=== PATIENT | female | born 1985 | race Caucasian/White ===

== ENCOUNTER 2022-08-20 08:34 | Day surgery (SDC) ==
[2022-08-15 19:24] LABS: Basophils # (Auto) 0.07 K/mcL (0.00-0.30); Basophils % (Auto) 0.6 % (0.0-2.0); Eosinophils % (Auto) 0.8 % (0.0-7.0); Hematocrit 41.9 % (34.1-44.9); Hemoglobin 13.2 g/dL (11.2-15.7); Lymphocytes # (Auto) 3.14 K/mcL (1.50-4.80); Lymphocytes % (Auto) 26.3 % (15.5-49.0); Mean Cell Volume 87.8 fL (80.0-100.0); Mean Corpuscular HGB Conc 31.5 g/dL (31.0-36.0); Mean Platelet Volume 10.3 fL (8.8-12.5); Monocytes # (Auto) 0.63 K/mcL (0.10-0.90); Monocytes % (Auto) 5.3 % (1.0-12.0); Neutrophils % (Auto) 66.5 % (38.0-78.0); Platelet Count 455 K/mcL (140-440); RBC 4.77 M/mcL (3.59-5.38)
[2022-08-15 19:35] LABS: Estimated Average Glucose(eAG) 143 mg/dL; Hemoglobin A1C 6.6 % Hgb (4.0-6.0)
[2022-08-15 20:46] LABS: ALT/SGPT 30 U/L (<40); AST/SGOT 23 U/L (<32); Albumin 4.3 gm/dL (3.2-5.2); Albumin/Globulin Ratio 1.7 (1.0-2.3); Alkaline Phosphatase 91 U/L (39-117); Bilirubin,Total 0.2 mg/dL (0.1-1.0); Blood Urea Nitrogen 9 mg/dL (6-20); Calcium 9.5 mg/dL (8.6-10.4); Carbon Dioxide 23 mmol/L (22-30); Chloride 97 mmol/L (96-108); Globulin 2.6 gm/dL (2.2-3.7); Glomerular Filtration Rate 71; Glucose 79 mg/dL (70-105)
[~2022-08-20 08:34] MED LIST: ceFAZolin 2 GM in DEXTROSE 5% IN WATER 50 ML IV SCH
[2022-08-20] MEDS ORDERED: PROPOFOL 200 MG/20 ML VIAL IV ONE (12:02)
[2022-08-20] MEDS ORDERED: GLYCOPYRROLATE 0.2 MG/ML VIAL IV ONE (12:02)
[2022-08-20] MEDS ORDERED: KETOROLAC 30 MG/ML VIAL ONE (12:02)
[2022-08-20] MEDS ORDERED: DEXAMETHASONE 10 MG/ML VIAL ONE (12:02)
[2022-08-20] MEDS ORDERED: fentaNYL 250 MCG/5 ML VIAL IV ONE (12:02)
[2022-08-20] MEDS ORDERED: MAGNESIUM SULFATE 2 GM/50 ML BAG IV ONE (12:02)
[2022-08-20] MEDS ORDERED: LIDOCAINE HCL/PF 100 MG/5 ML SYRINGE IV ONE (12:02)
[2022-08-20] MEDS ORDERED: KETAMINE 50 MG/ML Syringe (ANEST) IV ONE (12:02)
[2022-08-20] MEDS ORDERED: MIDAZOLAM 2 MG/2 ML VIAL ONE (12:02)
[2022-08-20] MEDS ORDERED: ONDANSETRON 4 MG/2 ML VIAL ONE (12:02)
[2022-08-20] MEDS ORDERED: PROMETHAZINE 25 MG/ML VIAL IV PRN ×2 (13:07→15:32)
[2022-08-20] MEDS ORDERED: ACETAMINOPHEN 1,000 MG/100 ML BAG IV ONE (13:07)
[2022-08-20] MEDS ORDERED: MEPERIDINE 25 MG/ML VIAL IV PRN ×2 (13:07→15:32)
[2022-08-20] MEDS ORDERED: diphenhydrAMINE 50 MG/ML VIAL IV PRN ×2 (13:07→15:32)
[2022-08-20] MEDS ORDERED: NALOXONE HCL 0.4 MG/ML VIAL IV PRN ×2 (13:07→15:32)
[2022-08-20] MEDS ORDERED: IPRATROPIUM/ALBUTEROL 3 ML AMPUL.NEB NEB PRN ×2 (13:07→15:32)
[2022-08-20] MEDS ORDERED: LACTATED RINGERS 250 ML IV PRN ×2 (13:07→15:32)
[2022-08-20] MEDS ORDERED: ONDANSETRON 4 MG/2 ML VIAL IV PRN ×2 (13:07→15:32)
[2022-08-20] MEDS ORDERED: METHOCARBAMOL 1,000 MG/10 ML VIAL IV PRN (13:07)
[2022-08-20] MEDS ORDERED: HYDROmorphone 0.5 MG/0.5 ML SYRINGE IV PRN (13:07)
[2022-08-20] MEDS ORDERED: fentaNYL 100 MCG/2 ML VIAL IV PRN (13:07)
[2022-08-20] MEDS ORDERED: LACTATED RINGERS 1,000 ML IV SCH ×2 (13:15→15:45)
[2022-08-20] MEDS ORDERED: BUPIVACAINE 0.25% 50 ML VIAL IJ ONE (13:25)
--- NOTE | 2022-08-20 15:49 | Brief Operative Note ---
Brief Operative Note Date of procedure: 08/20/22 Pre-op diagnosis: capsulitis and instability of right ankle Post-op diagnosis: same Procedure: right ankle: arthroscopy, ATFL repair and Internal brace Grafts/Implants: Yes (Arthrex internal brace ATFL with fibertacks x2 and boneanchors x2) Anesthesia: GETA Findings: firm bone with elimination of anterior drawer: significant anterior ankle capsulitis synovitis -no signs of osteochondral lesion visualized. ankle cartilage wnl in appearance Complications: none Surgeon: Christiano Ulloa Estimated blood loss (cc): 25 Tourniquet Time (Minutes): 120 Specimens Removed/Pathology: none sent Condition: stable Disposition: PACU
--- NOTE | 2022-08-20 15:51 | Discharge Plan ---
Discharge Plan Patient/Caregiver Discharge Instructions Activity: non-weight bearing Diet: Regular Diet Instructions: Ankle Arthroscopy (DC), General Anesthesia (DC) Prescriptions: New hydrocodone-acetaminophen 5-325 mg tablet 1 - 2 tab PO Q4H PRN (Reason: pain) Qty: 40 0RF cephalexin 500 mg tablet 1,000 mg PO Q12H Qty: 28 0RF Continued lamotrigine 200 MG tablet 200 mg PO DAILY escitalopram oxalate 20 MG tablet 20 mg PO QAM risperidone 1 mg Tablet 2 mg PO HS metformin 500 mg Tablet 1,000 mg PO BID glipizide 10 mg Tablet 10 mg PO QDAY Levemir U-100 Insulin 100 unit/mL Solution 100 unit SUBCUT HS tramadol 100 mg Tablet 100 mg PO TID PRN (Reason: Pain) Follow Up Plan Follow up with: Christiano Ulloa DPM [Physician] - 08/27/22 10:00 am Patient Disposition: Home, Self-Care Rehab Potential: Good I certify that the patient requires SNF services: No Overall status at discharge: patient is back to baseline Discharge Orders: Discharge Order (Routine); Ordered 08/20/22 Ordered By: Christiano Ulloa
[2022-08-20] MEDS: fentaNYL 100 MCG/2 ML VIAL IV PRN ×4 (16:09→16:20)
[2022-08-20] MEDS: HYDROmorphone 0.5 MG/0.5 ML SYRINGE IV PRN ×2 (16:26→17:04)
[2022-08-20] MEDS ORDERED: HYDROcodone/APAP 5/325MG TABLET PO ONE (17:47)
--- NOTE | 2022-09-11 09:49 | Operative Note ---
DATE OF OPERATION: 08/20/2022 PREOPERATIVE DIAGNOSIS: Instability of right ankle. POSTOPERATIVE DIAGNOSIS: Instability of right ankle. PROCEDURE: Arthroscopy with possible osteochondral lesion debridement and Brostrom repair with internal brace. SURGEON: Christiano Ulloa D.P.M. PATHOLOGY: None sent. ANESTHESIA: General. HEMOSTASIS: Achieved with thigh pneumatic tourniquet on the right side. ESTIMATED BLOOD LOSS: 20 mL. MATERIALS USED: Arthrex internal brace bone anchors and FiberTape, 2-0 Ethibond, 2-0 Vicryl, 3-0 Vicryl, 4-0 nylon, and 4-0 Monocryl. INJECTABLES: 20 mL of 0.5% Marcaine plain. COMPLICATIONS: None. FINDINGS: Upon arthroscopy, there was considerable capsulitis and a [place]'s ligament, which was debrided with a 3.5 shaver, and there was no osteochondral lesion visualized. 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 The patient had a considerably painful anterior drawer, and we tried conservative methods which failed. The patient is requesting above-outlined surgery of arthroscopy, possible debridement of osteochondral lesion, and Brostrom repair with internal brace construct. Risks, alternatives, complications and course were discussed on numerous meetings prior. DESCRIPTION OF PROCEDURE: The patient was brought to the operating room and identified by anesthesia staff and myself. The patient was transferred [facility] to the operating table, placed in the supine position. A well-padded thigh pneumatic tourniquet was applied. The patient was bumped into internal rotation with a hip bump. The foot was then injected with 20 mL of 0.5% Marcaine plain and the foot was prepped and draped in normal sterile fashion. A well-padded ankle distractor was applied and the thigh pneumatic tourniquet was inflated to 250 mmHg. The medial notch of Parveen was injected with normal sterile saline with a spinal needle. A scratch incision was created with an 11 blade. A small straight stat was used to bluntly dissect down to the capsule and inserted through the capsule. A Cannula and probe were inserted into the medial side of the ankle and then removed and the camera was inserted into the ankle. The camera was utilized to create a lateral portal, utilizing the identical procedure of an 11 blade and a small straight hemostat. A 3.5 shaver was inserted. It was utilized to debride a significant amount of capsulitis and synovitis in the anterior lateral and anterior medial ankle areas. A [place]'s ligament was identified and debrided. The ATFL viewed was extremely attenuated. Debridement was performed utilizing both portals with switching of instruments. The camera was then utilized to view both medial and lateral gutters, and there were no signs of cartilage that needed to be debrided. Cartilage overall was in fairly good condition. Next, the scope portion of the surgery was completed and portals were closed with 4-0 nylon. A curved incision was then created over the ATFL area and blunt and sharp dissection were used to gain access to the deep tissues. Noted was a very poorly amorphous ATFL ligament, which was transected off the distal tip of the fibula. Two Arthrex SutureTaks were inserted and an Arthrex 4.5 bone anchor was inserted in the distal fibula. Prior to the distal fibula insertion of the bone anchor, the talus was debrided and under C-arm a wire was inserted into the body of the talus anteriorly. It was visualized to be in an area without cartilage. In the C-arm, it was noted that the wire was neither in the ankle or the subtalar joint. A 4.5 bone anchor was inserted into the talus and the FiberTape was secured and taken out of the field of view. After, the Brostrom area was repaired with the 2-0 Ethibond incorporating the dorsal retinaculum. The distal fibular bone anchor was inserted and utilized to tie down and connect the two bone anchors with FiberTape. It was found to be in decent alignment with still an acceptable amount of inversion, and it was also found that there was no longer an anterior drawer effect appreciated. Area was flushed with normal saline and closed in a layered fashion with 2-0 Vicryl for deep tissues. Subcutaneous tissues were closed with 3-0 Vicryl, and then skin was closed with 4-0 Monocryl. The patient tolerated the procedure well and was extubated and transferred from the operating room to the PACU after cleansing of the foot and dressing of the foot with Xeroform, 4 x 4's, Kerlix, and Coban with a posterior splint was performed. The patient was sent to the PACU with vital signs stable and vascular status intact to all digits on the right foot. ERIK:[email or web address] Job ID: [id number] Doc ID: [id number] Christiano Ulloa DPM
== END 2022-08-20 19:47 | disposition home or self-care (01) ==
LOC: MEDSUR 08:34 → SUR 08:34 → MEDSUR 17:20 → SUR 19:47
PROVIDERS: ATTEND Podiatrist Foot & Ankle Surgery

== ENCOUNTER 2024-02-21 19:59 | Observation (INO) ==
[2024-02-21] MEDS ORDERED: IOPAMIDOL 100 ML BOTTLE IV ONE (20:00)
[2024-02-21] MEDS: ONDANSETRON 4 MG/2 ML VIAL IV ONE (20:43)
[2024-02-21] MEDS: 0.9 % SODIUM CHLORIDE 1,000 ML IV ONE (20:43)
[2024-02-21] MEDS: fentaNYL 100 MCG/2 ML VIAL IV ONE (20:43)
[2024-02-21] MEDS: DIAZEPAM 10 MG/2 ML SYRINGE IV ONE (21:05)
[2024-02-21] MEDS: HYDROmorphone 1 MG/ML SYRINGE IV ONE ×2 (21:44→22:20)
[2024-02-21 23:17] LABS: Basophils # (Auto) 0.03 K/mcL (0.00-0.30); Basophils % (Auto) 0.3 % (0.0-2.0); Eosinophils # (Auto) 0.16 K/mcL (0.00-0.70); Eosinophils % (Auto) 1.6 % (0.0-7.0); Hematocrit 40.4 % (34.1-44.9); Hemoglobin 13.5 g/dL (11.2-15.7); Lymphocytes # (Auto) 3.24 K/mcL (1.50-4.80); Lymphocytes % (Auto) 32.9 % (15.5-49.0); Mean Cell Volume 87.8 fL (80.0-100.0); Mean Corpuscular HGB Conc 33.4 g/dL (31.0-36.0); Mean Platelet Volume 9.4 fL (8.8-12.5); Monocytes # (Auto) 0.42 K/mcL (0.10-0.90); Monocytes % (Auto) 4.3 % (1.0-12.0); Platelet Count 480 K/mcL (140-440); Red Cell Distribution Width 11.7 % (11.5-14.5); WBC 9.9 K/mcL (4.5-11.0)
[2024-02-21 23:23] LABS: HCG,Serum Negative
[2024-02-21] MEDS: HYDROmorphone 0.5 MG/0.5 ML SYRINGE IV ONE (23:38)
[2024-02-21 23:44] LABS: ALT/SGPT 8 U/L (<40); AST/SGOT 11 U/L (<32); Albumin/Globulin Ratio 1.2 (1.0-2.3); Alkaline Phosphatase 115 U/L (39-117); Bilirubin,Total 0.2 mg/dL (0.1-1.0); Blood Urea Nitrogen 7 mg/dL (6-20); Calcium 9.5 mg/dL (8.6-10.4); Carbon Dioxide 19 mmol/L (22-30); Chloride 95 mmol/L (96-108); Globulin 3.3 gm/dL (2.2-3.7); Glomerular Filtration Rate 92; Glucose 342 mg/dL (70-105)
[2024-02-21] MEDS: ACETAMINOPHEN 1,000 MG/100 ML BAG IV ONE (23:53)
[2024-02-22] MEDS: HYDROmorphone 0.5 MG/0.5 ML SYRINGE IV PRN (00:42)
[2024-02-22] MEDS: DEXTROSE 5%-LR 1,000 ML IV SCH (00:43)
[2024-02-22] MEDS: ONDANSETRON 4 MG/2 ML VIAL IV PRN (02:19)
[2024-02-22] MEDS: LORazepam 2 MG/ML VIAL IV PRN (02:19)
[2024-02-22] MEDS: INSULIN LISPRO 1 UNIT/0.01 ML UNIT SQ SCH (04:41)
[2024-02-22] MEDS: INSULIN LISPRO 1 UNIT/0.01 ML UNIT SQ ONE (04:58)
[2024-02-22 05:58] LABS: Hematocrit 44.2 % (34.1-44.9); Hemoglobin 14.4 g/dL (11.2-15.7); Mean Cell Volume 89.7 fL (80.0-100.0); Mean Corpuscular HGB Conc 32.6 g/dL (31.0-36.0); Mean Platelet Volume 9.5 fL (8.8-12.5); Platelet Count 472 K/mcL (140-440); RBC 4.93 M/mcL (3.59-5.38); Red Cell Distribution Width 11.9 % (11.5-14.5); WBC 18.8 K/mcL (4.5-11.0)
[2024-02-22 06:40] LABS: ALT/SGPT 12 U/L (<40); AST/SGOT 16 U/L (<32); Albumin 4.1 gm/dL (3.2-5.2); Albumin/Globulin Ratio 1.2 (1.0-2.3); Alkaline Phosphatase 119 U/L (39-117); Bilirubin,Total 0.4 mg/dL (0.1-1.0); Blood Urea Nitrogen 4 mg/dL (6-20); Calcium 8.8 mg/dL (8.6-10.4); Carbon Dioxide 16 mmol/L (22-30); Chloride 96 mmol/L (96-108); Globulin 3.4 gm/dL (2.2-3.7); Glomerular Filtration Rate 121; Glucose 397 mg/dL (70-105)
[2024-02-22] MEDS: LACTATED RINGERS 1,000 ML IV SCH (07:06)
[2024-02-22] MEDS: oxyCODONE IR 5 MG TABLET PO PRN (09:16)
[2024-02-22] MEDS ORDERED: ONDANSETRON 4 MG ODT TABLET SL PRN (12:56)
[2024-02-22] MEDS: METOPROLOL SUCCINATE 50 MG TAB.XL.24H PO ONE (13:36)
[2024-02-22] MEDS: lamoTRIgine 100 MG TABLET PO ONE (13:39)
[2024-02-22] MEDS: SERTRALINE 100 MG TABLET PO ONE (13:41)
[2024-02-22] MEDS: PIPERACILLIN SODIUM/TAZOBACTAM 3.375 GM in 0.9 % SODIUM CHLORIDE 100 ML IV SCH (16:19)
[2024-02-22] MEDS: metFORMIN 500 MG TABLET PO SCH (16:39)
[2024-02-22] MEDS: ACETAMINOPHEN 650 MG/65 ML BAG IV PRN (17:45)
[2024-02-22] MEDS ORDERED: BLOOD SUGAR DIAGNOSTIC STRIP SCH (21:00)
[2024-02-22] MEDS ORDERED: traZODone HCL 50 MG TABLET PO SCH (21:00)
[2024-02-23] MEDS ORDERED: METOPROLOL SUCCINATE 50 MG TAB.XL.24H PO SCH (09:00)
[2024-02-23] MEDS ORDERED: lamoTRIgine 100 MG TABLET PO SCH (09:00)
[2024-02-23] MEDS ORDERED: SERTRALINE 100 MG TABLET PO SCH (09:00)
== END 2024-02-22 19:40 | disposition short-term general hospital (02) ==
LOC: MEDSUR 19:59 → ED 19:59 → MEDSUR 02-22 00:25
PROVIDERS: ADMIT Surgery Surgical Critical Care; ATTEND Surgery Surgical Critical Care